=== PATIENT | male | born 1990 | race Caucasian/White ===

== ENCOUNTER 2017-01-16 15:58 | Emergency (ER) | payer OTHER ==
[2017-01-16 17:56] VITALS: BP 124/73
[2017-01-16] MEDS ORDERED: Cephalexin CAP* 500 MG PO ONE ×2 (18:35)
[2017-01-16] MEDS ORDERED: Sulfamethox/Trimethoprim DS 800/160* TAB PO ONE ×2 (18:35→18:37)
--- NOTE | 2017-01-16 18:55 | UC ---
Epistaxis Nasal HPI - HPI Summary HPI Summary: 26 YO MALE WITH RIGHT SIDEWALL NOSE PAIN X 2-3 DAYS HAS HAD SIMILAR INFECTION IN PAST HAS HAD BUTTICK ABSCESS I&DED NO KNOWN MRSA - History of Current Complaint Chief Complaint: UCSkin Stated Complaint: RED AREA ON NOSE Time Seen by Provider: 01/16/17 18:30 Hx Obtained From: Patient Onset/Duration: Gradual Onset, Lasting Days Timing: Constant Severity Initially: Mild Severity Currently: Moderate Pain Intensity: 4 Pain Scale Used: 0-10 Numeric Aggravating Factor(s): Nothing - TOUCH Associated Signs And Symptoms: Positive: Negative - Allergies/Home Medications Allergies/Adverse Reactions: Allergies Allergy/AdvReac Type Severity Reaction Status Date / Time No Known Allergies Allergy Verified 12/18/15 19:32 PMH/Surg Hx/FS Hx/Imm Hx Previously Healthy: Yes Endocrine History Of: Denies: Diabetes, Thyroid Disease Cardiovascular History Of: Denies: Cardiac Disorders, Hypertension Respiratory History Of: Denies: COPD, Asthma GI/ History Of: Denies: Ulcer - Surgical History Surgical History: None - Family History Known Family History: Positive: Hypertension - Social History Alcohol Use: Daily Alcohol Amount: 12 pack on days off, 3-5 if have to work Substance Use Type: None Smoking Status (MU): Never Smoked Tobacco Type: Smokeless Tobacco Amount Used/How Often: 1 can per day Have You Smoked in the Last Year: Yes - chew Review of Systems Constitutional: Negative Skin: Negative Eyes: Negative ENT: Negative Respiratory: Negative Cardiovascular: Negative Gastrointestinal: Negative Genitourinary: Negative Motor: Negative Neurovascular: Negative Musculoskeletal: Negative Neurological: Negative Psychological: Negative All Other Systems Reviewed And Are Negative: Yes Physical Exam Triage Information Reviewed: Yes Appearance: Well-Appearing, No Pain Distress, Well-Nourished Vital Signs: Initial Vital Signs Temp 99.3 F 01/16/17 17:53 Pulse 87 01/16/17 17:53 Resp 18 01/16/17 17:53 BP 124/73 01/16/17 17:53 Pulse Ox 100 01/16/17 17:53 Eyes: Positive: Conjunctiva Clear ENT: Positive: Hearing grossly normal, Nasal congestion, TMs normal, Other: - SEE IMAGE. Negative: Pharyngeal erythema, Nasal drainage, Trismus, Muffled/ hoarse voice Neck: Positive: Supple, Nontender Respiratory: Positive: Lungs clear, Normal breath sounds, No respiratory distress Cardiovascular: Positive: RRR, No Murmur Neurological: Positive: Alert Psychological Exam: Normal Epistaxis Nasal Course/Dx - Differential Dx/Diagnosis Provider Diagnoses: RIGHT NASAL SIDEWALL CELLULITIS/SUSPECT EARLY ABSCESS Discharge - Discharge Plan Condition: Stable Disposition: HOME Prescriptions: Cephalexin CAP* [Keflex CAP*] 500 mg PO QID #28 cap Sulfamethox/Trimethoprim DS* [Bactrim DS 800/160 TAB*] 1 tab PO BID #14 tab Patient Education Materials: Cellulitis (ED) Referrals: No Primary Care Phys,NOPCP [Primary Care Provider] - Additional Instructions: warm soapy compresses 4x day until better TO ER FOR NEW OR WORSENING SYMPTOMS RECHECK HERE IN 2-3 DAYS IF NOT DRAMATICALLY IMPROVED Images Head: 1 - SWOLLEN/RED RIGHT NASAL SIDEWALL, NO ABSCESS NOTED BUT INDURATED. NO INTRA NASAL MASS, D/C
== END 2017-01-16 18:55 | disposition home or self-care (01) ==
LOC: UCEAST 15:58
DX: J34.0 Abscess, furuncle and carbuncle of nose (principal)
CPT/HCPCS: 99213; A9270-GY; G0463

== ENCOUNTER 2017-09-21 19:27 | Emergency (ER) | payer OTHER ==
[2017-09-21 19:41] VITALS: BP 118/63
--- NOTE | 2017-09-21 19:52 | UC ---
Respiratory Complaint HPI - HPI Summary HPI Summary: Pt presents with a dry cough for the last 14 days. He tells me that he has tried OTC mucinex, cold and flu medication, nyquill, and dayquill with only relief of symptoms for a short duration and then as the day goes on - his symptoms return. Denies fever, chills, sore throat, SOB, chest pain, abdominal pain, n/v/d/c, or body aches. - History of Current Complaint Chief Complaint: UCRespiratory Stated Complaint: COUGH Hx Obtained From: Patient Onset/Duration: Gradual Onset Severity Initially: Mild Severity Currently: Mild Pain Intensity: 3 Pain Scale Used: 0-10 Numeric Character: Cough: Nonproductive - Allergies/Home Medications Allergies/Adverse Reactions: Allergies Allergy/AdvReac Type Severity Reaction Status Date / Time No Known Allergies Allergy Verified 12/18/15 19:32 PMH/Surg Hx/FS Hx/Imm Hx Previously Healthy: Yes - Surgical History Surgical History: None - Family History Known Family History: Positive: None, Hypertension - Social History Occupation: Employed Full-time Lives: Alone Alcohol Use: Daily Alcohol Amount: 12 pack on days off, 3-5 if have to work Substance Use Type: None Smoking Status (MU): Never Smoked Tobacco Type: Smokeless Tobacco Amount Used/How Often: 1 can per day Have You Smoked in the Last Year: Yes - chew Review of Systems Constitutional: Negative Skin: Negative Eyes: Negative ENT: Negative Respiratory: Cough Cardiovascular: Negative Gastrointestinal: Negative Musculoskeletal: Negative Neurological: Negative Psychological: Negative All Other Systems Reviewed And Are Negative: Yes Physical Exam Triage Information Reviewed: Yes Appearance: Well-Appearing, No Pain Distress, Well-Nourished Vital Signs: Initial Vital Signs Temp 100.9 F 09/21/17 19:35 Pulse 110 09/21/17 19:35 Resp 16 09/21/17 19:35 BP 118/63 09/21/17 19:35 Pulse Ox 98 09/21/17 19:35 Vital Signs Reviewed: Yes Eyes: Positive: Conjunctiva Clear. Negative: Conjunctiva Inflamed, Discharge ENT: Positive: Hearing grossly normal, Pharynx normal, TMs normal, Uvula midline. Negative: Pharyngeal erythema, Nasal congestion, Nasal drainage, TM bulging, TM dull, TM red, Tonsillar swelling, Tonsillar exudate, Hoarse voice, Sinus tenderness Neck: Positive: Supple, Nontender, No Lymphadenopathy Respiratory: Positive: Chest non-tender, Lungs clear, Normal breath sounds, No respiratory distress, No accessory muscle use, Wheezing - Mild throughout Cardiovascular: Positive: RRR, No Murmur, Pulses Normal Neurological: Positive: Alert Psychological: Positive: Age Appropriate Behavior Skin: Negative: rashes UC Diagnostic Evaluation - Laboratory O2 Sat by Pulse Oximetry: 98 Respiratory Course/Dx - Course Course Of Treatment: Suspect bronchitis - Differential Dx/Diagnosis Provider Diagnoses: Bronchitis Discharge - Discharge Plan Condition: Stable Disposition: HOME Prescriptions: Albuterol HFA INHALER* [Ventolin HFA Inhaler*] 1 - 2 puff INH Q6H PRN #1 mdi PRN Reason: Cough Benzonatate CAP* [Tessalon 100 MG CAP*] 100 mg PO TID PRN #21 cap PRN Reason: Cough Guaifenesin-Codeine [Guaiatussin AC 100-10 mg/5Ml] 5 ml PO BEDTIME PRN #30 ml MDD 5ml PRN Reason: Cough Patient Education Materials: Acute Bronchitis (ED) Referrals: No Primary Care Phys,NOPCP [Primary Care Provider] - Additional Instructions: If you develop a fever, shortness of breath, chest pain, new or worsening symptoms - please call your PCP or go to the ED.
== END 2017-09-21 20:24 | disposition home or self-care (01) ==
LOC: UCEAST 19:27
DX: J40 Bronchitis, not specified as acute or chronic (principal); F17.220 Nicotine dependence, chewing tobacco, uncomplicated
CPT/HCPCS: 99212; G0463

== ENCOUNTER 2017-10-07 15:17 | Emergency (ER) | payer OTHER ==
--- NOTE | 2017-10-07 16:21 | RAD ---
HISTORY: Crush injury, third digit of the left hand COMPARISONS: October 18, 2012 VIEWS: 3, Frontal, lateral, and oblique views of the third digit of the left hand FINDINGS: BONE DENSITY: Normal. BONES: There is no displaced fracture. JOINTS: There is no arthropathy. ALIGNMENT: There is no dislocation. SOFT TISSUES: Unremarkable. OTHER FINDINGS: None. IMPRESSION: NO ACUTE OSSEOUS INJURY. IF SYMPTOMS PERSIST, RECOMMEND REPEAT IMAGING.
[2017-10-07 18:22] VITALS: BP 130/85
--- NOTE | 2017-10-07 18:57 | UC ---
Hand/Wrist HPI - HPI Summary HPI Summary: continued left third finger pain and swelling after dropping wood on it 1 week ago - History Of Current Complaint Chief Complaint: UCUpperExtremity Stated Complaint: FINGER INJURY Time Seen by Provider: 10/07/17 18:45 Hx Obtained From: Patient ?: No Mechanism Of Injury: crush injury left 3rd finger Onset/Duration: Sudden Onset Severity Initially: Mild Severity Currently: Mild Pain Intensity: 4 Pain Scale Used: 0-10 Numeric Character Of Pain: Aching, Throbbing Aggravating Factor(s): Movement Alleviating Factor(s): Nothing Associated Signs And Symptoms: Positive: Swelling, Redness Related History: Dominant Hand Right - Allergies/Home Medications Allergies/Adverse Reactions: Allergies Allergy/AdvReac Type Severity Reaction Status Date / Time No Known Allergies Allergy Verified 10/07/17 15:46 Home Medications: Home Medications NK [No Home Medications Reported] 10/07/17 [History Confirmed 10/07/17] PMH/Surg Hx/FS Hx/Imm Hx Previously Healthy: Yes - Surgical History Surgical History: None - Family History Known Family History: Positive: None, Hypertension - Social History Occupation: Employed Full-time Lives: With Family Alcohol Use: Daily Alcohol Amount: 12 pack on days off, 3-5 if have to work Substance Use Type: None Smoking Status (MU): Current Every Day Smoker Type: Smokeless Tobacco Amount Used/How Often: 1 can per day Have You Smoked in the Last Year: Yes - chew Review of Systems Constitutional: Negative Skin: Negative Eyes: Negative ENT: Negative Respiratory: Negative Cardiovascular: Negative Gastrointestinal: Negative Genitourinary: Negative Motor: Negative Neurovascular: Negative Musculoskeletal: Arthralgia - middle of left third finger painful, red/bruised and swollen, Edema Neurological: Negative Psychological: Negative Is Patient Immunocompromised?: No All Other Systems Reviewed And Are Negative: Yes Physical Exam Triage Information Reviewed: Yes Appearance: Well-Appearing, No Pain Distress, Well-Nourished Vital Signs: Initial Vital Signs Temp 98.8 F 10/07/17 15:43 Pulse 96 10/07/17 15:43 Resp 18 10/07/17 15:43 BP 143/85 10/07/17 15:43 Pulse Ox 99 10/07/17 15:43 Vital Signs Reviewed: Yes Eye Exam: Normal Eyes: Positive: Conjunctiva Clear ENT Exam: Normal ENT: Positive: Normal ENT inspection, Hearing grossly normal. Negative: Nasal congestion, Nasal drainage, Tonsillar exudate, Trismus, Hoarse voice, Dental tenderness, Sinus tenderness Dental Exam: Normal Neck exam: Normal Neck: Positive: Supple, Nontender Respiratory Exam: Normal Respiratory: Positive: Chest non-tender, No respiratory distress, No accessory muscle use Cardiovascular Exam: Normal Cardiovascular: Positive: RRR, Pulses Normal, Brisk Capillary Refill Musculoskeletal Exam: Normal Musculoskeletal: Positive: Strength Intact, ROM Intact, Edema @ - mid left third finger Neurological Exam: Normal Neurological: Positive: Alert, Muscle Tone Normal Psychological Exam: Normal Skin Exam: Normal Diagnostics - Radiology No standard instances Xray Interpretation: No Acute Changes Radiology Interpretation Completed By: ED Physician, Radiologist Hand/Wrist Course/Dx - Course Course Of Treatment: splint, nsaid follow with pcp/ortho prn - Differential Dx/Diagnosis Provider Diagnoses: crush injury left middle finger, elevated blood pressure with dx of hypertension Discharge - Discharge Plan Condition: Stable Disposition: HOME Patient Education Materials: Ibuprofen (By mouth), R.I.C.E. Treatment (ED), Crush Injury (ED) Forms: *Work Release Referrals: Walter Munson MD [Medical Doctor] - If Needed
== END 2017-10-07 19:27 | disposition home or self-care (01) ==
LOC: UCEAST 15:17
DX: S67.193A Crushing injury of left middle finger, initial encounter (principal); W20.8XXA Other cause of strike by thrown, projected or falling object, initial encounter; Y93.89 Activity, other specified; Y92.9 Unspecified place or not applicable; R03.0 Elevated blood-pressure reading, without diagnosis of hypertension; F17.220 Nicotine dependence, chewing tobacco, uncomplicated
CPT/HCPCS: 73140; 99211; G0463

== ENCOUNTER 2018-01-30 19:26 | Emergency (ER) | payer OTHER ==
[2018-01-30 19:38] VITALS: BP 133/75
--- NOTE | 2018-01-30 20:36 | RAD ---
Indication: Chest pressure. 2 views the chest including dual energy PA views demonstrates pectus excavatum. Lung huff demonstrate no pleural fluid, pneumonia or pneumothorax. IMPRESSION: No active cardiopulmonary disease is noted.
--- NOTE | 2018-01-30 20:41 | UC ---
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 better if sitting or lying down pressure sensation no SOB no n/v/d no abd pain - History of Current Complaint Chief Complaint: UCChestPain Stated Complaint: WEIGHT ON CHEST FEELING Time Seen by Provider: 01/30/18 19:27 Hx Obtained From: Patient Onset/Duration: Sudden Onset, Lasting Days Timing: Constant Initial Severity: Moderate Current Severity: Mild Pain Intensity: 2 Chest Pain Location: Mid Sternal - Left Character: Pressure/Squeezing Aggravating Factor(s): Position Alleviating Factor(s): Rest Associated Signs & Symptoms: Positive: Chest Pain - Allergy/Home Medications Allergies/Adverse Reactions: Allergies Allergy/AdvReac Type Severity Reaction Status Date / Time No Known Allergies Allergy Verified 01/30/18 19:38 PMH/Surg Hx/FS Hx/Imm Hx Previously Healthy: Yes - Surgical History Surgical History: None - Family History Known Family History: Positive: Cardiac Disease, Hypertension - Social History Alcohol Use: Daily Alcohol Amount: 12 pack on days off, 3-5 if have to work Substance Use Type: None Smoking Status (MU): Current Every Day Smoker Type: Smokeless Tobacco Amount Used/How Often: 1 can per day Have You Smoked in the Last Year: Yes - chew Review of Systems Constitutional: Negative Skin: Negative Eyes: Negative ENT: Negative Respiratory: Negative Cardiovascular: Chest Pain Gastrointestinal: Negative Genitourinary: Negative Motor: Negative Neurovascular: Negative Musculoskeletal: Negative Neurological: Negative Psychological: Negative Is Patient Immunocompromised?: No All Other Systems Reviewed And Are Negative: Yes Physical Exam Triage Information Reviewed: Yes Appearance: Well-Appearing, No Pain Distress, Well-Nourished, Thin Vital Signs: Initial Vital Signs Temp 99.2 F 01/30/18 19:32 Pulse 83 01/30/18 19:32 Resp 16 01/30/18 19:32 BP 133/75 01/30/18 19:32 Pulse Ox 100 01/30/18 19:32 Vital Signs Reviewed: Yes Eyes: Positive: Conjunctiva Clear ENT: Positive: Hearing grossly normal. Negative: Nasal congestion, Nasal drainage, Trismus, Muffled voice, Hoarse voice Neck exam: Normal Respiratory: Positive: Lungs clear, Normal breath sounds, No respiratory distress, No accessory muscle use. Negative: Chest non-tender - tender left sternal border Cardiovascular: Positive: RRR, No Murmur, Pulses Normal Abdomen Description: Positive: Nontender, No Organomegaly, Soft. Negative: CVA Tenderness (R), CVA Tenderness (L) Bowel Sounds: Positive: Present Musculoskeletal: Positive: ROM Intact, No Edema Neurological: Positive: Alert Psychological Exam: Normal Skin Exam: Normal Diagnostics - Radiology No standard instances Xray Interpretation: No Acute Changes Radiology Interpretation Completed By: Radiologist - EKG Cardiac Rate: NL Cardiac Rhythm: Sinus: Normal Ectopy: None ST Segment: Normal - Clinical Impression Provider Diagnoses: acute left chest wall pain Discharge - Sign-Out/Discharge Documenting (check all that apply): Discharge/Admit/Transfer - Discharge Plan Condition: Stable Disposition: HOME Prescriptions: Omeprazole CAP* [Prilosec CAP* 20 MG] 20 mg PO BEDTIME #14 cap. Patient Education Materials: Chest Wall Pain in Children (ED) Referrals: [facility] [place] [facility] REFERRAL [Outside] - As Soon As Possible Additional Instructions: Advil heat recheck for new or worsening symptoms or if not better in 4 days - Billing Disposition and Condition Condition: STABLE Disposition: Home
== END 2018-01-30 20:45 | disposition home or self-care (01) ==
LOC: UCEAST 19:26
DX: R07.89 Other chest pain (principal); F17.290 Nicotine dependence, other tobacco product, uncomplicated
CPT/HCPCS: 71046; 93005; 99212; G0463